=== PATIENT | female | born 1970 | race Caucasian/White ===

== ENCOUNTER 2017-02-20 16:05 | Emergency (ER) | payer OTHER | END 2017-02-20 19:38 | disposition home or self-care (01) | LOC: D.ER 16:05 | DX: S16.1XXA Strain of muscle, fascia and tendon at neck level, initial encounter (principal); V09.9XXA Pedestrian injured in unspecified transport accident, initial encounter; Y93.89 Activity, other specified; Y92.410 Unspecified street and highway as the place of occurrence of the external cause ==

== ENCOUNTER 2018-04-07 11:14 | Emergency (ER) | payer OTHER ==
[~2018-04-07] VITALS: Ht 157.5 cm; Wt 97.7 kg
[2018-04-07 11:26] VITALS: Ht 157.5 cm; Wt 97.7 kg
[2018-04-07 12:16] LABS: BASOPHILS 0.5 % (0-2); EOSINOPHILS 3.2 % (0-7); HEMATOCRIT 46.7 % (36.0-48.0); HEMOGLOBIN 15.9 g/dL (12-16); IMMATURE GRANULOCYTES 0.5 % (0-5); MCH 32.7 pg (26.0-34.0); MCV 96.1 fL (80.0-100.0); MEAN PLATELET VOLUME 10.5 fL (7.4-10.4); MONOCYTES 6.7 % (2-11); NEUTROPHILS 51.1 % (40-80); PLATELET COUNT 166 10x3/uL (130-400); RBC 4.86 10x6/uL (4.00-5.40); RDW 13.3 % (11.5-14.5); WBC 6.6 10x3/uL (4.8-10.8)
[2018-04-07 12:37] LABS: ALBUMIN 3.8 g/dL (3.4-5.0); ALKALINE PHOSPHATASE 84 U/L (46-116); ALT (SGPT) 22 U/L (10-68); BILIRUBIN - TOTAL 0.31 mg/dL (0.2-1.3); CALC OSMOLALITY 281 mosm/kg (275-300); CALCIUM 9.4 mg/dL (8.5-10.1); CARBON DIOXIDE 26.7 mmol/L (21.0-32.0); CHLORIDE - SERUM 104 mmol/L (98-107); CREATININE - SERUM 0.8 mg/dL (0.6-1.3); GLUCOSE 99 mg/dL (74-106); POTASSIUM - SERUM 4.5 mmol/L (3.5-5.1); PROTEIN - SERUM 7.3 g/dL (6.4-8.2); SODIUM 140 mmol/L (136-145); UREA NITROGEN 22 mg/dL (7-18); eGFR NON AFRICAN AMERICAN 81 mL/min (90-120)
[2018-04-07 12:49] LABS: CKMB 0.4 U/L (0.0-3.6); CREATINE KINASE 47 UL (21-215); TROPONIN-I < 0.017 ng/mL (0.000-0.060)
[2018-04-07] MEDS ORDERED: LEVAQUIN750 MG PO (13:10)
[2018-04-07] MEDS ORDERED: ALBUTEROL SULF8.5 GM INH (13:10)
[2018-04-07] MEDS ORDERED: PREDNISONE10 MG PO (13:10)
[2018-04-07] MEDS ORDERED: SCOT-TUSSI10 MG/5 ML PO (13:11)
[2018-04-07 13:52] VITALS: BP 176/102
== END 2018-04-07 13:45 | disposition home or self-care (01) ==
LOC: D.ER 11:14
PROVIDERS: Emergency Medicine
DX: J18.9 Pneumonia, unspecified organism (principal); R09.89 Other specified symptoms and signs involving the circulatory and respiratory systems; F17.200 Nicotine dependence, unspecified, uncomplicated